=== PATIENT | female | born 1985 | race Caucasian/White ===

== ENCOUNTER 2017-09-27 16:12 | Emergency (ER) | payer BC, OTHER ==
[2017-09-27] MEDS ORDERED: Adacel Vial IM ONE ×2 (17:27→17:32)
[2017-09-27] MEDS ORDERED: Zosyn 3.375GM/100 Ml D5W 3.375 GM/100 ML IVPB IV STA (17:27)
--- NOTE | 2017-09-27 17:27 | ERPHSYRPT ---
- History of Present Illness Time Seen by Provider: 09/27/17 17:18 Source: patient, family Exam Limitations: no limitations Patient Subjective Stated Complaint: Pt states "My friend brought her dog over and my cat got nervous and clawed my lip and hung from my lip. It really hurts. " Triage Nursing Assessment: Pt alert and oriented X 3, skin pwd PT ambulates with an upright steady gait, able to speak in clear full sentences. PT has laceration noted to upper left side of lip." Physician History: The patient is a 32-year-old female who comes in complaining that her cat was afraid of her friend's dog and the cat climbed up her scratching her in various places, causing a laceration to her left part of her upper lip. She obtained this cat as a feral cat last year. The cat has up-to-date rabies vaccination. The patient thinks her last tetanus vaccination was more than 5 years ago. Her past medical history is significant for depression and anxiety. Timing/Duration: today Quality: painful Severity: moderate Location: face, torso Possible Causes: other (cat scratch) Associated Symptoms: denies symptoms Allergies/Adverse Reactions: No Known Drug Allergies Allergy (Unverified 09/27/17 16:24) Home Medications: Buprenorphine HCl/Naloxone HCl [Suboxone 8 mg-2 mg Sl Film] 1 tab PO DAILY 09/27 [History] Citalopram Hydrobromide [Citalopram HBr] 10 mg PO DAILY 09/27/17 [History] Hx Tetanus, Diphtheria Vaccination/Date Given: No Hx Influenza Vaccination/Date Given: Yes Hx Pneumococcal Vaccination/Date Given: No Immunizations Up to Date: Yes - Review of Systems Constitutional: No Fever, No Chills Eyes: No Symptoms Ears, Nose, & Throat: No Symptoms Respiratory: No Cough, No Dyspnea Cardiac: No Chest Pain, No Edema, No Syncope Abdominal/Gastrointestinal: No Abdominal Pain, No Nausea, No Vomiting, No Diarrhea Genitourinary Symptoms: No Dysuria Musculoskeletal: No Back Pain, No Neck Pain Skin: Other (lacerations) Neurological: No Dizziness, No Focal Weakness, No Sensory Changes Psychological: Anxiety Endocrine: No Symptoms Hematologic/Lymphatic: No Symptoms Immunological/Allergic: No Symptoms All Other Systems: Reviewed and Negative - Past Medical History Pertinent Past Medical History: Yes Neurological History: No Pertinent History ENT History: No Pertinent History Cardiac History: No Pertinent History Respiratory History: No Pertinent History Endocrine Medical History: No Pertinent History Musculoskeletal History: Arthritis GI Medical History: No Pertinent History History: No Pertinent History Psycho-Social History: Anxiety, Depression Female Reproductive Disorders: No Pertinent History - Past Surgical History Past Surgical History: Yes Other Surgical History: left knee - Social History Smoking Status: Current every day smoker How long have you smoked: 10 years Exposure to second hand smoke: Yes Drug Use: none Patient Lives Alone: No - Female History Hx Last Menstrual Period: 08/15/2017 Hx Now: No - Nursing Vital Signs Nursing Vital Signs: Initial Vital Signs Temperature 99.2 F 09/27/17 16:16 Pulse Rate 80 09/27/17 16:16 Respiratory Rate 16 09/27/17 16:16 Blood Pressure 125/88 09/27/17 16:16 O2 Sat by Pulse Oximetry 100 09/27/17 16:16 Pain Scale Pain Intensity 0 - Physical Exam General Appearance: anxiety Eye Exam: PERRL/EOMI, eyes nml inspection Ears, Nose, Throat Exam: normal ENT inspection, pharynx normal, moist mucous membranes Neck Exam: normal inspection, non-tender, supple, full range of motion Respiratory Exam: normal breath sounds, lungs clear, No respiratory distress Cardiovascular Exam: regular rate/rhythm, normal heart sounds Gastrointestinal/Abdomen Exam: soft, mass, No tenderness Pelvic Exam: not done Rectal Exam: not done Back Exam: normal inspection, normal range of motion, No CVA tenderness, No vertebral tenderness Extremity Exam: normal inspection, normal range of motion Neurologic Exam: alert, oriented x 3, cooperative, normal mood/affect, sensation nml, No motor deficits Skin Exam: laceration (Examination of the skin: There are 2 superficial small lacerations to the forehead. There are some minor superficial lacerations to the chest. There is a significant gaping laceration with loss of skin and tissue to the left aspect of the upper lip crossing the vermilion border.) SpO2: 100 Oxygen Delivery: Room Air Ordered Tests: Active Orders 24 hr Category Date Time Status IV Insertion STAT Care 09/27/17 17:27 Active Medication Summary Generic Name Dose Route Start Last Admin Trade Name Freq PRN Reason Stop Dose Admin Lorazepam 1 mg 09/27/17 17:28 09/27/17 17:36 Ativan 2 Mg/1 Ml Vial IV 07/27/18 17:27 1 mg PRN PRN Administration CIWA SCORE Discontinued Medications Generic Name Dose Route Start Last Admin Trade Name Freq PRN Reason Stop Dose Admin Diphtheria/Tetanus/Acell Pertussis 0.5 ml 09/27/17 17:27 09/27/17 17:35 Adacel Vial IM 09/27/17 17:28 0.5 ml .ONCE ONE Administration Diphtheria/Tetanus/Acell Pertussis Confirm 09/27/17 17:32 Adacel Vial Administered 09/27/17 17:33 Dose 0.5 ml IM .STK-MED ONE Piperacillin Sod/Tazobactam Sod 3.375 gm in 100 mls @ 200 mls/hr 09/27/17 17: 27 09/27/17 17:37 Zosyn 3.375gm/100 Ml D5w IV 09/27/17 17:56 200 ml/hr STAT STA 200 mls/hr Administration Piperacillin Sod/Tazobactam Sod Confirm 09/27/17 17:32 Zosyn 3.375gm/100 Ml D5w Administered 09/27/17 17:33 Dose 3.375 gm in 100 mls @ ud IV .STK-MED ONE Morphine Sulfate 4 mg 09/27/17 17:28 09/27/17 17:36 Morphine Sulfate 4 Mg Inj IV 09/27/17 17:29 4 mg STAT ONE Administration Morphine Sulfate Confirm 09/27/17 17:32 Morphine Sulfate 4 Mg Inj Administered 09/27/17 17:33 Dose 4 mg .ROUTE .STK-MED ONE Ondansetron HCl 4 mg 09/27/17 17:29 09/27/17 17:48 Zofran 4 Mg/2 Ml Vial IV 09/27/17 17:30 4 mg STAT ONE Administration Ondansetron HCl Confirm 09/27/17 17:32 Zofran 4 Mg/2 Ml Vial Administered 09/27/17 17:33 Dose 4 mg .ROUTE .STK-MED ONE - Progress Progress: unchanged Counseled pt/family regarding: diagnosis - Departure Time of Disposition: 18:18 Departure Disposition: Transfer (Transfer to [facility] ER per Dr Lemus. Pt to travel by private car.) Clinical Impression: Facial laceration, Cat scratch of face Condition: Stable Critical Care Time: No Referrals: OH BARRETT [Primary Care Provider] - Additional Instructions: You have a laceration to your upper lip caused by a cat scratch. You're being transferred by private car to regional ER to be evaluated. You were given a tetanus vaccination. You were given Zosyn 3.375 mg, morphine 4 mg, and Ativan 1 mg by IV in the ER. Do not eat or drink anything until released to do so.
[2017-09-27] MEDS ORDERED: MORPHINE SULFATE 4 MG INJ IV ONE (17:28)
[2017-09-27] MEDS ORDERED: Ativan 2 MG/1 ML VIAL IV PRN (17:28)
[2017-09-27] MEDS ORDERED: Zofran 4 MG/2 ML VIAL IV ONE (17:29)
[2017-09-27] MEDS ORDERED: Ativan 2 MG/1 ML VIAL ONE (17:32)
[2017-09-27] MEDS ORDERED: Zofran 4 MG/2 ML VIAL ONE (17:32)
[2017-09-27] MEDS ORDERED: MORPHINE SULFATE 4 MG INJ ONE (17:32)
[2017-09-27] MEDS ORDERED: Zosyn 3.375GM/100 Ml D5W 3.375 GM/100 ML IVPB IV ONE (17:32)
[2017-09-27 18:26] VITALS: BP 114/65; PULSE 72; O2SAT 99
== END 2017-09-27 18:43 | disposition short-term general hospital (02) ==
LOC: ED 16:12
DX: W55.03XA Scratched by cat, initial encounter (principal); F41.9 Anxiety disorder, unspecified; Z72.0 Tobacco use; M19.90 Unspecified osteoarthritis, unspecified site
CPT/HCPCS: 36000; 90471; 90715; 96374; 96375; 99284; J2060; J2270; J2405; J2543

== ENCOUNTER 2018-07-08 09:10 | Emergency (ER) | payer BC ==
[2018-07-08] MEDS ORDERED: Zofran 4 MG/2 ML VIAL ONE (09:26)
[2018-07-08] MEDS ORDERED: Sodium Chloride 0.9% 1000 ML 1,000 ML IV STA (09:41)
[2018-07-08] MEDS ORDERED: Zofran 4 MG/2 ML VIAL IV ONE (09:41)
[2018-07-08] MEDS ORDERED: Pepcid 20 MG VIAL IV ONE ×2 (09:41→09:47)
[2018-07-08] MEDS ORDERED: Ativan 2 MG/1 ML VIAL IV ONE (09:42)
[2018-07-08 09:45] VITALS: BP 161/98; PULSE 53; O2SAT 100
[2018-07-08] MEDS ORDERED: Ativan 2 MG/1 ML VIAL ONE (09:47)
[2018-07-08] MEDS ORDERED: Sodium Chloride 0.9% 1000 ML 1,000 ML ONE (09:47)
--- NOTE | 2018-07-08 09:47 | ERPHSYRPT ---
- History of Present Illness Time Seen by Provider: 07/08/18 09:17 Historian: patient Exam Limitations: no limitations Patient Subjective Stated Complaint: N&V, fever Triage Nursing Assessment: Pt c/o of N&V for 3 days, continious dry heaving since arrival to the ER, BP 161/98, pulses normal, hypoactive bowel sounds heard in all 4 quadrants, last intake yesterday, last BM Monday, pale in color Physician History: C/o diffuse abdominal pain, cramps, vomiting x 3 days, denies diarrhea, fever, chills, sore throat, cough, or cold symptoms, not vomiting blood or coffee ground material, no vaginal bleeding, last BM was 2 days ago. Timing/Duration: day(s) (3) Activities at Onset: none Quality: cramping Abdominal Pain Onset Location: generalized abdomen Pain Radiation: no radiation Severity of Pain-Max: severe Severity of Pain-Current: severe Modifying Factors: Improves With: nothing Associated Symptoms: nausea, vomiting Previous symptoms: no prior history Allergies/Adverse Reactions: No Known Drug Allergies Allergy (Verified 07/08/18 09:40) Home Medications: Buprenorphine HCl 8 mg SL DAILY 07/08/18 [History] Hx Tetanus, Diphtheria Vaccination/Date Given: No Hx Influenza Vaccination/Date Given: Yes Hx Pneumococcal Vaccination/Date Given: No - Review of Systems Constitutional: No Symptoms Eyes: No Symptoms Ears, Nose, & Throat: No Symptoms Respiratory: No Symptoms Cardiac: No Symptoms Abdominal/Gastrointestinal: Abdominal Pain, Nausea, Vomiting Genitourinary Symptoms: No Symptoms Musculoskeletal: No Symptoms Skin: No Symptoms Neurological: No Symptoms All Other Systems: Reviewed and Negative - Past Medical History Pertinent Past Medical History: Yes Neurological History: Migraines ENT History: No Pertinent History Cardiac History: No Pertinent History Respiratory History: No Pertinent History Endocrine Medical History: No Pertinent History, Other Musculoskeletal History: Osteoarthritis GI Medical History: No Pertinent History History: No Pertinent History Psycho-Social History: Anxiety, Depression Female Reproductive Disorders: No Pertinent History Other Medical History: Has had the treatemnt for HEP C. - Past Surgical History Past Surgical History: Yes Other Surgical History: left knee - Social History Smoking Status: Current every day smoker How long have you smoked: 10 years Exposure to second hand smoke: Yes Drug Use: none Patient Lives Alone: No - Female History Hx Last Menstrual Period: 07/08/2018 Hx Now: No - Nursing Vital Signs Nursing Vital Signs: Initial Vital Signs Temperature 98.3 F 07/08/18 09:12 Pulse Rate 53 L 07/08/18 09:12 Blood Pressure 161/98 07/08/18 09:12 O2 Sat by Pulse Oximetry 100 07/08/18 09:12 Pain Scale Pain Intensity 8 - Physical Exam General Appearance: no apparent distress Eye Exam: eyes nml inspection Ears, Nose, Throat Exam: normal ENT inspection, pharynx normal, moist mucous membranes Neck Exam: normal inspection, non-tender, supple, No JVD Respiratory Exam: normal breath sounds, lungs clear, airway intact Cardiovascular Exam: regular rate/rhythm, normal heart sounds, normal peripheral pulses, capillary refill <2 sec, No murmur Gastrointestinal/Abdomen Exam: soft, normal bowel sounds, tenderness ( generalized), No distention, No mass, No guarding, No ecchymosis, No pulsatile mass, No rebound, No hernia, No organomegaly Extremity Exam: normal inspection, No calf tenderness Neurologic Exam: alert, oriented x 3, cooperative, other (anxious) Skin Exam: normal color, warm, dry, No rash Lymphatic Exam: No adenopathy SpO2 Interpretation: normal SpO2: 100 O2 Delivery: Room Air - Course Nursing assessment & vital signs reviewed: Yes Ordered Tests: Active Orders 24 hr Category Date Time Status EKG-ER Only STAT Care 07/08/18 09:41 Active IV Insertion STAT Care 07/08/18 09:41 Active NPO (ED) STAT Care 07/08/18 09:41 Active ABDOMEN AND PELVIS W/0 CONTRAS [CT] Stat Exams 07/08/18 10:30 Ordered CBC W DIFF Stat Lab 07/08/18 10:00 Completed CMP Stat Lab 07/08/18 10:00 Completed HCG,QUALITATIVE URINE Stat Lab 07/08/18 09:42 Completed LIPASE Stat Lab 07/08/18 10:00 Completed Lactic Acid Stat Lab 07/08/18 09:41 Completed TROPONIN Q3H Lab 07/08/18 10:00 Completed TROPONIN Q3H Lab 07/08/18 12:57 Received TROPONIN Q3H Lab 07/08/18 15:45 Ordered TROPONIN Q3H Lab 07/08/18 18:45 Ordered TROPONIN Q3H Lab 07/08/18 21:45 Ordered UA W/RFX UR CULTURE Stat Lab 07/08/18 12:45 Completed Urine Triage Profile Stat Lab 07/08/18 12:45 Completed Medication Summary Discontinued Medications Generic Name Dose Route Start Last Admin Trade Name Long NORRISN Reason Stop Dose Admin Famotidine 20 mg 07/08/18 09:41 07/08/18 09:52 Pepcid 20 Mg Vial IV 07/08/18 09:42 20 mg STAT ONE Administration Famotidine Confirm 07/08/18 09:47 Pepcid 20 Mg Vial Administered 07/08/18 09:48 Dose 20 mg IV .STK-MED ONE Hydromorphone HCl 1 mg 07/08/18 12:23 07/08/18 12:28 Hydromorphone 1 Mg/Ml Ampule IV 07/08/18 12:24 1 mg STAT ONE Administration Hydromorphone HCl Confirm 07/08/18 12:25 Hydromorphone 1 Mg/Ml Ampule Administered 07/08/18 12:26 Dose 1 mg .ROUTE .STK-MED ONE Sodium Chloride 1,000 mls @ 999 mls/hr 07/08/18 09:41 07/08/18 09:52 Sodium Chloride 0.9% 1000 Ml IV 07/08/18 10:41 999 mls/hr .Q1H1M STA Administration Sodium Chloride Confirm 07/08/18 09:47 Sodium Chloride 0.9% 1000 Ml Administered 07/08/18 09:48 Dose 1,000 mls @ ud .ROUTE .STK-MED ONE Ketorolac Tromethamine 30 mg 07/08/18 11:08 07/08/18 11:23 Toradol 30 Mg Injection IV 07/08/18 11:09 30 mg STAT ONE Administration Ketorolac Tromethamine Confirm 07/08/18 11:19 Toradol 30 Mg Injection Administered 07/08/18 11:20 Dose 30 mg .ROUTE .STK-MED ONE Lorazepam 1 mg 07/08/18 09:42 07/08/18 09:52 Ativan 2 Mg/1 Ml Vial IV 07/08/18 09:43 1 mg STAT ONE Administration Lorazepam Confirm 07/08/18 09:47 Ativan 2 Mg/1 Ml Vial Administered 07/08/18 09:48 Dose 2 mg .ROUTE .STK-MED ONE Ondansetron HCl Confirm 07/08/18 09:26 Zofran 4 Mg/2 Ml Vial Administered 07/08/18 09:27 Dose 4 mg .ROUTE .STK-MED ONE Ondansetron HCl 4 mg 07/08/18 09:41 07/08/18 09:45 Zofran 4 Mg/2 Ml Vial IV 07/08/18 09:42 4 mg STAT ONE Administration Promethazine HCl 25 mg 07/08/18 12:23 07/08/18 12:28 Phenergan 25 Mg Inj IM 07/08/18 12:24 25 mg STAT ONE Administration Promethazine HCl Confirm 07/08/18 12:25 Phenergan 25 Mg Inj Administered 07/08/18 12:26 Dose 25 mg .ROUTE .[facility] ONE Lab/Rad Data: Laboratory Result Diagrams 07/08/18 10:00 07/08/18 10:00 Laboratory Results 07/08/18 07/08/18 07/08/18 Range/Units 12:45 12:45 10:00 WBC (4.0-10.5) K/mm3 RBC (4.1-5.4) M/mm3 Hgb (12.0-16.0) gm/dl Hct (35-47) % MCV (78-100) fl MCH (26-32) pg MCHC (32-36) g/dl RDW (11.5-14.0) % Plt Count (150-450) K/mm3 MPV (6-9.5) fl Gran % (36.0-66.0) % Eos # (Auto) (0-0.5) Absolute Lymphs (auto) (1.0-4.6) Absolute Monos (auto) (0.0-1.3) Lymphocytes % (24.0-44.0) % Monocytes % (0.0-12.0) % Eosinophils % (0.00-5.0) % Basophils % (0.0-0.4) % Absolute Granulocytes (1.4-6.9) Basophils # (0-0.4) Sodium (137-145) mmol/L Potassium (3.5-5.1) mmol/L Chloride (98-107) mmol/L Carbon Dioxide (22-30) mmol/L Anion Gap (5-15) MEQ/L BUN (7-17) mg/dL Creatinine (0.52-1.04) mg/dL Estimated GFR ML/MIN Glucose (74-106) mg/dL Lactic Acid (0.4-2.0) Calcium (8.4-10.2) mg/dL Total Bilirubin (0.2-1.3) mg/dL AST (14-36) U/L ALT (0-35) U/L Alkaline Phosphatase (38-126) U/L Troponin I < 0.012 (0.000-0.034) ng/mL Serum Total Protein (6.3-8.2) g/dL Albumin (3.5-5.0) g/dL Lipase (23-300) U/L Urine Color YELLOW (YELLOW) Urine Appearance CLOUDY (CLEAR) Urine pH 6.0 (5-6) Ur Specific [place] 1.027 (1.005-1.025) Urine Protein 30 (Negative) Urine Ketones SMALL (NEGATIVE) Urine Blood NEGATIVE (0-5) Anant/ul Urine Nitrite NEGATIVE (NEGATIVE) Urine Bilirubin NEGATIVE (NEGATIVE) Urine Urobilinogen 2 (0-1) mg/dL Ur Leukocyte Esterase NEGATIVE (NEGATIVE) Urine WBC (Auto) NONE (0-5) /HPF Urine RBC (Auto) 0-2 (0-2) /HPF U Epithel Cells (Auto) RARE (FEW) /HPF Urine Bacteria (Auto) RARE (NEGATIVE) /HPF Urine Mucus (Auto) MANY (NEGATIVE) /HPF Urine Culture Reflexed NO (NO) Urine Glucose NEGATIVE (NEGATIVE) mg/dL Urine HCG, Qual (Negative) Urine Opiates Level NEGATIVE (NEGATIVE) Ur Methadone NEGATIVE (NEGATIVE) Urine Barbiturates NEGATIVE (NEGATIVE) Ur Phencyclidine (PCP) NEGATIVE (NEGATIVE) Urine Amphetamine NEGATIVE (NEGATIVE) U Benzodiazepine Level NEGATIVE (NEGATIVE) Urine Cocaine NEGATIVE (NEGATIVE) Urine Marijuana (THC) POSITIVE (NEGATIVE) 07/08/18 07/08/18 07/08/18 Range/Units 10:00 10:00 09:42 WBC 12.5 H (4.0-10.5) K/mm3 RBC 4.41 (4.1-5.4) M/mm3 Hgb 14.0 (12.0-16.0) gm/dl Hct 40.1 (35-47) % MCV 90.9 (78-100) fl MCH 31.7 (26-32) pg MCHC 34.9 (32-36) g/dl RDW 12.6 (11.5-14.0) % Plt Count 234 (150-450) K/mm3 MPV 10.1 H (6-9.5) fl Gran % 83.5 H (36.0-66.0) % Eos # (Auto) 0.03 (0-0.5) Absolute Lymphs (auto) 1.34 (1.0-4.6) Absolute Monos (auto) 0.68 (0.0-1.3) Lymphocytes % 10.7 L (24.0-44.0) % Monocytes % 5.4 (0.0-12.0) % Eosinophils % 0.2 (0.00-5.0) % Basophils % 0.2 (0.0-0.4) % Absolute Granulocytes 10.40 H (1.4-6.9) Basophils # 0.03 (0-0.4) Sodium 138 (137-145) mmol/L Potassium 3.2 L (3.5-5.1) mmol/L Chloride 107 (98-107) mmol/L Carbon Dioxide 22 (22-30) mmol/L Anion Gap 12.0 (5-15) MEQ/L BUN 12 (7-17) mg/dL Creatinine 0.62 (0.52-1.04) mg/dL Estimated GFR > 60.0 ML/MIN Glucose 107 H (74-106) mg/dL Lactic Acid (0.4-2.0) Calcium 9.3 (8.4-10.2) mg/dL Total Bilirubin 1.00 (0.2-1.3) mg/dL AST 22 (14-36) U/L ALT 17 (0-35) U/L Alkaline Phosphatase 54 (38-126) U/L Troponin I (0.000-0.034) ng/mL Serum Total Protein 7.3 (6.3-8.2) g/dL Albumin 4.1 (3.5-5.0) g/dL Lipase 29 (23-300) U/L Urine Color (YELLOW) Urine Appearance (CLEAR) Urine pH (5-6) Ur Specific [place] (1.005-1.025) Urine Protein (Negative) Urine Ketones (NEGATIVE) Urine Blood (0-5) Anant/ul Urine Nitrite (NEGATIVE) Urine Bilirubin (NEGATIVE) Urine Urobilinogen (0-1) mg/dL Ur Leukocyte Esterase (NEGATIVE) Urine WBC (Auto) (0-5) /HPF Urine RBC (Auto) (0-2) /HPF U Epithel Cells (Auto) (FEW) /HPF Urine Bacteria (Auto) (NEGATIVE) /HPF Urine Mucus (Auto) (NEGATIVE) /HPF Urine Culture Reflexed (NO) Urine Glucose (NEGATIVE) mg/dL Urine HCG, Qual NEGATIVE (Negative) Urine Opiates Level (NEGATIVE) Ur Methadone (NEGATIVE) Urine Barbiturates (NEGATIVE) Ur Phencyclidine (PCP) (NEGATIVE) Urine Amphetamine (NEGATIVE) U Benzodiazepine Level (NEGATIVE) Urine Cocaine (NEGATIVE) Urine Marijuana (THC) (NEGATIVE) 07/08/18 Range/Units 09:41 WBC (4.0-10.5) K/mm3 RBC (4.1-5.4) M/mm3 Hgb (12.0-16.0) gm/dl Hct (35-47) % MCV (78-100) fl MCH (26-32) pg MCHC (32-36) g/dl RDW (11.5-14.0) % Plt Count (150-450) K/mm3 MPV (6-9.5) fl Gran % (36.0-66.0) % Eos # (Auto) (0-0.5) Absolute Lymphs (auto) (1.0-4.6) Absolute Monos (auto) (0.0-1.3) Lymphocytes % (24.0-44.0) % Monocytes % (0.0-12.0) % Eosinophils % (0.00-5.0) % Basophils % (0.0-0.4) % Absolute Granulocytes (1.4-6.9) Basophils # (0-0.4) Sodium (137-145) mmol/L Potassium (3.5-5.1) mmol/L Chloride (98-107) mmol/L Carbon Dioxide (22-30) mmol/L Anion Gap (5-15) MEQ/L BUN (7-17) mg/dL Creatinine (0.52-1.04) mg/dL Estimated GFR ML/MIN Glucose (74-106) mg/dL Lactic Acid 1.2 (0.4-2.0) Calcium (8.4-10.2) mg/dL Total Bilirubin (0.2-1.3) mg/dL AST (14-36) U/L ALT (0-35) U/L Alkaline Phosphatase (38-126) U/L Troponin I (0.000-0.034) ng/mL Serum Total Protein (6.3-8.2) g/dL Albumin (3.5-5.0) g/dL Lipase (23-300) U/L Urine Color (YELLOW) Urine Appearance (CLEAR) Urine pH (5-6) Ur Specific [place] (1.005-1.025) Urine Protein (Negative) Urine Ketones (NEGATIVE) Urine Blood (0-5) Anant/ul Urine Nitrite (NEGATIVE) Urine Bilirubin (NEGATIVE) Urine Urobilinogen (0-1) mg/dL Ur Leukocyte Esterase (NEGATIVE) Urine WBC (Auto) (0-5) /HPF Urine RBC (Auto) (0-2) /HPF U Epithel Cells (Auto) (FEW) /HPF Urine Bacteria (Auto) (NEGATIVE) /HPF Urine Mucus (Auto) (NEGATIVE) /HPF Urine Culture Reflexed (NO) Urine Glucose (NEGATIVE) mg/dL Urine HCG, Qual (Negative) Urine Opiates Level (NEGATIVE) Ur Methadone (NEGATIVE) Urine Barbiturates (NEGATIVE) Ur Phencyclidine (PCP) (NEGATIVE) Urine Amphetamine (NEGATIVE) U Benzodiazepine Level (NEGATIVE) Urine Cocaine (NEGATIVE) Urine Marijuana (THC) (NEGATIVE) - Progress Progress: improved Progress Note: 07/08/18 13:12 Pt states, she feels better, stopped vomiting, nausea resolved, denies severe pain, abdomen re-examined: soft, nontender, no guarding or mass, normal bowel sounds, no rebound tenderness, she is afebrile and stable, she refused CT abdomen and Ekg after I explained the reason of doing it, she is alert and oriented x4, menrtally competent, she is being discharged home on Phenergan supp , and Zofran ODT, Ativan, to rest x 2-3 days, drink plenty of fluids, and follow up with her physician in 2-3 days. Counseled pt/family regarding: lab results, diagnosis, need for follow-up - Departure Departure Disposition: Home Clinical Impression: Narcotic withdrawal Vomiting Qualifiers: Vomiting type: unspecified Vomiting Intractability: non-intractable Nausea presence: with nausea Qualified Code(s): R11.2 - Nausea with vomiting, unspecified Condition: Stable Critical Care Time: No Referrals: OH BARRETT [Primary Care Provider] - Instructions: Nausea and Vomiting, Adult (DC), Polysubstance Abuse (DC) Additional Instructions: Rest x 2-3 days, drink plenty of fluids, and follow up with your physician in 2- 3 days, return if severe pain, vomiting, fever> 102 F! Prescriptions: Ondansetron ODT 4 MG [Zofran Odt 4 mg] 4 mg PO Q6H PRN PRN #10 tab.rapdis PRN Reason: Nausea Lorazepam 1 mg [Ativan 1 MG] 1 mg PO TID PRN #10 tablet PRN Reason: Anxiety Promethazine HCl 25 mg Supp [Phenergan 25 mg Supp] 25 mg [place] Q6H PRN #10 supp.rect PRN Reason: Nausea/Vomiting
[2018-07-08 10:43] LABS: BASOPHIL % 0.2 % (0.0-0.4); Basophil (Absolute #) 0.03 (0-0.4); Eosinophil % 0.2 % (0.00-5.0); Eosinophil (Absolute #) 0.03 (0-0.5); Granulocytes % 83.5 % (36.0-66.0); Hematocrit 40.1 % (35-47); Lymphocyte (Absolute #) 1.34 (1.0-4.6); Lymphocytes % 10.7 % (24.0-44.0); Mean Cell Volume 90.9 fl (78-100); Mean Corpuscular Hemoglobin 31.7 pg (26-32); Mean Corpuscular Hgb Concent. 34.9 g/dl (32-36); Mean Platelet Volume 10.1 fl (6-9.5); Monocyte (Absolute #) 0.68 (0.0-1.3); Monocytes % 5.4 % (0.0-12.0); Platelet Count 234 K/mm3 (150-450); Red Blood Count 4.41 M/mm3 (4.1-5.4); Red Cell Distribution Width 12.6 % (11.5-14.0); White Blood Count 12.5 K/mm3 (4.0-10.5)
[2018-07-08 10:54] LABS: ALBUMIN 4.1 g/dL (3.5-5.0); ALKALINE PHOSPHATASE 54 U/L (38-126); BLOOD UREA NITROGEN 12 mg/dL (7-17); CHLORIDE 107 mmol/L (98-107); Calcium 9.3 mg/dL (8.4-10.2); Carbon Dioxide 22 mmol/L (22-30); Creatinine 1 0.62 mg/dL (0.52-1.04); Glucose 107 mg/dL (74-106); LIPASE 29 U/L (23-300); Potassium 3.2 mmol/L (3.5-5.1); SGOT/AST 22 U/L (14-36); SGPT/ALT 17 U/L (0-35); SODIUM 138 mmol/L (137-145); Total Protein 7.3 g/dL (6.3-8.2)
[2018-07-08] MEDS ORDERED: TORAdol 30 mg Injection IV ONE (11:08)
[2018-07-08] MEDS ORDERED: TORAdol 30 mg Injection ONE (11:19)
[2018-07-08] MEDS ORDERED: Hydromorphone 1 mg/ml Ampule IV ONE (12:23)
[2018-07-08] MEDS ORDERED: Phenergan 25 MG INJ IM ONE (12:23)
[2018-07-08] MEDS ORDERED: Hydromorphone 1 mg/ml Ampule ONE (12:25)
[2018-07-08] MEDS ORDERED: Phenergan 25 MG INJ ONE (12:25)
[2018-07-08 12:52] LABS: Appearance CLOUDY (CLEAR); Bacteria RARE /HPF (NEGATIVE); Bilirubin NEGATIVE (NEGATIVE); Blood NEGATIVE Ery/ul (0-5); Epithelial Cells RARE /HPF (FEW); Glucose NEGATIVE (NEGATIVE); Ketones SMALL (NEGATIVE); Leukocyte Esterase NEGATIVE (NEGATIVE); Mucus MANY /HPF (NEGATIVE); Nitrite NEGATIVE (NEGATIVE); Protein,Urine Dip 30 (Negative); RBC 0-2 /HPF (0-2); Specific Gravity 1.027 (1.005-1.025); Urobilinogen 2 mg/dL (0-1)
[2018-07-08 13:02] LABS: Amphetamine,Urine NEGATIVE (NEGATIVE); Barbiturate,Urine NEGATIVE (NEGATIVE); Benzodiazepine,Urine NEGATIVE (NEGATIVE); Cocaine,Urine NEGATIVE (NEGATIVE); Methadone,Urine NEGATIVE (NEGATIVE); Opiate,Urine NEGATIVE (NEGATIVE); PCP,Urine NEGATIVE (NEGATIVE); THC,Urine POSITIVE (NEGATIVE)
== END 2018-07-08 13:29 | disposition home or self-care (01) ==
LOC: ED 09:10
DX: F15.93 Other stimulant use, unspecified with withdrawal (principal); R11.2 Nausea with vomiting, unspecified; F41.8 Other specified anxiety disorders; B19.20 Unspecified viral hepatitis C without hepatic coma
CPT/HCPCS: 36415; 80053; 80307; 81001; 83605; 83690; 84484; 84703; 85025; 96360; 96372; 96374; 96375; 99284; J1170; J1885; J2060; J2405; J2550